=== PATIENT | female | born 1955 ===

== ENCOUNTER → 2018-08-04 | Outpatient (REF) | payer BC ==
[2018-08-04 16:39] LABS: PLATELET COUNT, AUTOMATED 229 K/uL (150-450)
== END ==
PROVIDERS: ATTEND Nurse Practitioner Family
DX: R11.10 Vomiting, unspecified (principal); R50.9 Fever, unspecified
CPT/HCPCS: 82040; 82247; 82310; 82374; 82435; 82565; 82947; 84075; 84132; 84155; 84295; 84450; 84460; 84520; 85025